=== PATIENT | female | born 1975 | race Caucasian/White ===

== ENCOUNTER 2022-01-05 14:11 | Outpatient (CLI) | payer OTHER, SELFPAY ==
--- NOTE | 2022-01-05 | ECG_ITS ---
Measurements Intervals [place] Rate: 88 P: 15 W[place]: 132 QRS: 21 QRSD: 84 T: 28 QT: 338 QTc: 411 Interpretive Statements SINUS RHYTHM NORMAL ECG NO PREVIOUS ECG AVAILABLE FOR COMPARISON Electronically Signed On 01-05-2022 15:47:11 CDT by Conrad Wray M.D.
== END 2022-01-05 14:12 | disposition home or self-care (01) ==
LOC: ANHCARD 14:15
PROVIDERS: Visit Provider Obstetrics & Gynecology
DX: R55 Syncope and collapse (principal)
CPT/HCPCS: 93005

== ENCOUNTER 2022-02-02 10:53 | Outpatient (RCR) | payer OTHER, SELFPAY ==
[2022-02-02] MEDS: RHO(D) IMMUNE GLOBULIN 300 MCG/2 ML SYRINGE IM (15:00)
== END 2022-05-03 23:59 | disposition home or self-care (01) ==
LOC: ANHLAB 10:53
PROVIDERS: Visit Provider Obstetrics & Gynecology
DX: Z29.13 Encounter for prophylactic Rho(D) immune globulin (principal); O36.0190 Maternal care for anti-D [Rh] antibodies, unspecified trimester, not applicable or unspecified; Z3A.00 Weeks of gestation of pregnancy not specified
CPT/HCPCS: 36415; 85461; 90384; 96372; J2790

== ENCOUNTER 2022-04-22 06:26 | Inpatient (IN) | payer OTHER, SELFPAY ==
[2022-04-22] VITALS (170 sets, daily range): BP systolic 68–172; BP diastolic 35–96; PULSE 86–191; TEMP 36.3–38.3; O2SAT 94–100; BMI 32.1
--- NOTE | 2022-04-22 06:41 | P.HP_ITS ---
H&P: HPI History of Present Illness Date/Time: 04/22/22 06:41 Chief Complaint: induction of labor at term Narrative: this is a 47-year-old 6 para 5 whose last menstrual period is unknown, EDC is 04/29/2022, confirmed by 18 week ultrasound presents at term for induction of labor. The has been uncomplicated short of hers markedly advanced age. [facility] Family History Family History Mother Hypertension Kidney failure Colitis Social History Social History Substance use: never Spiritual care concerns: No Meds Home Medications and Allergies Allergies Allergy/AdvReac Type Severity Reaction Status Date / Time No Known Allergies Allergy Unknown Verified 04/07/22 15:55 Exam : Speculum Exam - Cervix: normal appearance of the cervix, Cervical os closed ( Cervix 6cm. Spontaneous rupture membranes was clear. ) and Other cervical findings present ( FHTs okay now. Earlier deep deceleration) Assessment and Plan Assessment and plan (1) Term : Code(s): Z34.90 - Encounter for supervision of normal , unspecified, unspecified trimester Status: Acute (2) Advanced maternal age (AMA) in : Status: Acute Plan medical induction of labor. Spontaneous vaginal delivery is expected.
--- NOTE | 2022-04-22 06:44 | LDADM ---
This patient, Harmony Boggs, was admitted to Labor/Delivery/Recovery 106 on 04/22/22 at 06:26. Plans for labor, pain management and were discussed with patient. Patient/family oriented to hospital policies and general routines including ID bracelet, bed and alarms, visiting hours, pain management, procedures, bathroom and other care routines, personal items, smoking policy, room service/diet and guest tray routines, security routines, and visiting hours. Patient/Family are encouraged to report perceived risks to care and to ask questions if they do not understand what they are told or what they should do. See OBIX for further documentation.
[2022-04-22 07:22] LABS: Basophils Absolute Auto 0.1 K/mm3 (0.0-0.1); Basophils Percent Auto 0.4 % (0.2-1.2); Eosinophils Absolute Auto 0.2 K/mm3 (0-0.3); Eosinophils Percent Auto 1.5 % (0-4.4); Hematocrit 36.3 % (37.0-47.0); Hemoglobin 11.9 g/dL (12.0-15.0); Immature Granulocyte Absolute 0.06 K/mm3 (0.00-0.031); Immature Granulocyte Percent A 0.4 % (0-0.5); Lymphocytes Absolute Auto 2.32 K/mm3 (0.9-3.2); Lymphocytes Percent Auto 17.3 % (18.3-44.2); Mean Corpuscular HGB Conc 32.8 g/dl (32-36); Mean Corpuscular Hemoglobin 29.2 pg (26-34); Mean Corpuscular Volume 89.2 fl (80-100); Mean Platelet Volume 9.2 fl (7.4-10.4); Monocytes Absolute Auto 0.9 K/mm3 (0.1-0.6); Monocytes Percent Auto 6.5 % (2.6-8.5); Neutrophils Absolute Auto 9.9 K/mm3 (1.3-6.7); Neutrophils Percent Auto 73.9 % (45.5-73.1); Platelet Count Result 315 k/mm3 (150-375); Red Blood Count 4.07 M/mm3 (4.2-5.4); Red Cell Distribution Width 13.2 % (11.5-14.5); White Blood Count 13.4 K/mm3 (4.5-10.0)
[2022-04-22] MEDS: LACTATED RINGERS 1,000 ML 125 ML IV CONT ×2 (07:42→19:10)
[2022-04-22] MEDS: OXYTOCIN 30 UNITS/NS 500 ML 30 UNITS/500 ML BAG IV CONT (07:42)
--- NOTE | 2022-04-22 10:05 | WPDANESEPP ---
Anes - Eval Pre Procedure Procedure: Labor pain management Date/Time: 04/22/22 10:05 Preop Diagnosis: Pain during labor Pre Op Diagnosis: iol Patient Data Age: 47 Gender: F Height: 1.63 m Weight: 85 kg Last Vital Signs Temp 36.6 C 04/22/22 08:00 Pulse 92 04/22/22 10:01 BP 115/66 04/22/22 10:01 O2 Del Method Room Air 04/22/22 06:43 Allergies Allergy/AdvReac Type Severity Reaction Status Date / Time No Known Allergies Allergy Unknown Verified 04/07/22 15:55 Home Medications Medication Instructions Recorded Confirmed Type famotidine 20 mg tablet (Pepcid AC) See Rx Instructions .Route .COMPLEX 04/22/22 04/22/22 History Laboratory Tests 04/22/22 04/22/22 04/22/22 07:15 07:15 07:15 WBC 13.4 K/mm3 H K/mm3 (4.5-10.0) RBC 4.07 M/mm3 L M/mm3 (4.2-5.4) Hgb 11.9 g/dL L g/dL (12.0-15.0) Hct 36.3 % L % (37.0-47.0) MCV 89.2 fl fl (80-100) MCH 29.2 pg pg (26-34) MCHC 32.8 g/dl g/dl (32-36) RDW 13.2 % % (11.5-14.5) Plt Count 315 k/mm3 k/mm3 (150-375) MPV 9.2 fl fl (7.4-10.4) Immature Gran % (Auto) 0.4 % % (0-0.5) Neut % (Auto) 73.9 % H % (45.5-73.1) Lymph % (Auto) 17.3 % L % (18.3-44.2) [place] % (Auto) 6.5 % % (2.6-8.5) Eos % (Auto) 1.5 % % (0-4.4) Baso % (Auto) 0.4 % % (0.2-1.2) Lymph # (Auto) 2.32 K/mm3 K/mm3 (0.9-3.2) [place] # (Auto) 0.9 K/mm3 H K/mm3 (0.1-0.6) Eos # (Auto) 0.2 K/mm3 K/mm3 (0-0.3) Baso # (Auto) 0.1 K/mm3 K/mm3 (0.0-0.1) Abs Immat Gran (auto) 0.06 K/mm3 H K/mm3 (0.00-0.031) Absolute Neuts (auto) 9.9 K/mm3 H K/mm3 (1.3-6.7) Absolute Nucleated RBC 0.0 K/mm3 K/mm3 (0.0-0.012) Nucleated RBC % 0.0 % % (0.0-0.2) RPR Pending Blood Type AB Negative Antibody Screen Positive Antibody Identification Pending Antigen Identification Pending TAWANNA, IgG Interpret Not Performed TAWANNA, Poly Interpret Negative TAWANNA, Complement Interp Pending Patient hx anesthesia problems: none Family hx anesthesia problems: none Results Review: All pre-operative results and documents have been reviewed as part of the pre-operative evaluation. [facility] Family History Family History Mother Hypertension Kidney failure Colitis Social History Social History Smoking status: Never smoker Substance use: never Spiritual care concerns: No Exam Day of Procedure 04/22/22 10:05 Patient weight: overweight Neurological: alert and oriented
[2022-04-22 10:22] LABS: Rapid Plasma Reagin Non-Reactive (NonReactive)
--- NOTE | 2022-04-22 16:34 | PM.OBPNLAB ---
Pain Control Date/time seen: 04/22/22 16:34 Pain control: tolerating well Pelvic Exam Dilation (cm): 7 Effacement (%): 80 station: -1 Amniotic membrane status: Leaking Contractions Monitor mode: Internal Contraction frequency: 2
[2022-04-22] MEDS: fentaNYL CITRATE INJ (*CRX) 100 MCG/2 ML VIAL 50 MCG IV PUSH (17:08)
--- NOTE | 2022-04-22 19:00 | PM.OBPNLAB ---
Pain Control Date/time seen: 04/22/22 19:00 Pain control: tolerating well and epidural Pelvic Exam Dilation (cm): 9 Effacement (%): 80 station: -1 Amniotic membrane status: Leaking Contractions Monitor mode: Internal Contraction frequency: 2
[2022-04-22] MEDS: AMPICILLIN 2 GM/NS 100 ML 2 GM/100 ML BAG IVPB (22:22)
[2022-04-23] VITALS (39 sets, daily range): BP systolic 101–180; BP diastolic 53–80; PULSE 78–123; RESP 16–18; TEMP 36.1–37.4; O2SAT 80–100
--- NOTE | 2022-04-23 00:27 | PM.OBPRVD ---
OB - Delivery Note Procedure Procedure: Patient pushed for a spontaneous vaginal delivery. The fetus was delivered atraumatically and placed on the maternal abdomen. The cord was clamped and cut after 1 minute of life. The cord was double clamped and cut and a segment of cord was collected for cord gases. Cord blood was collected for blood type and Coomb's testing. The placenta delivered spontaneously and was noted to be intact. The perineum was inspected and there were no lacerations noted. The uterus was firm and good hemostasis was noted. The patient and fetus were stable in the delivery room. Delivery monitor: External FHT Route of delivery: Episiotomy description: None Laceration Description: None Specimen: No Quantitative Blood Loss (ml): 150 Anesthesia type: Epidural Disposition: Floor () Complications: No immediate complications Baby Date of : 04/23/22 Time of : 00:19 Weeks of gestation at delivery: 40 gender: Female presentation: vertex position: Right Occiput Anterior Placenta delivery description: Spontaneous Cord Vessel Description: 3 Vessels score one minute: 8 score five minutes: 9
[2022-04-23] MEDS: OXYTOCIN 30 UNITS/NS 500 ML 30 UNITS/500 ML BAG 125 UNITS IV CONT (00:58)
[2022-04-23] MEDS: BENZOCAINE 20% AER SPR (*SP) 56 GM CAN 1 SPRAY TOPICAL (02:30)
[2022-04-23] MEDS: WITCH HAZEL 40 PADS 1 PAD TOPICAL (02:30)
--- NOTE | 2022-04-23 03:24 | ADMGEN ---
This patient, Harmony Boggs, was admitted to OB 2nd Floor Room 279-00. Patient/family oriented to hospital policies and general routines including ID bracelet, bed and alarms, visiting hours, pain management, procedures, bathroom and other care routines, personal items, smoking policy, room service/diet, and visiting hours. Information on how to activate the Rapid Response Team has been discussed. Patient/Family are encouraged to report perceived risks to care and to ask questions if they do not understand what they are told or what they should do.
[2022-04-23] MEDS: LANOLIN (LANSINOH) 7.5 GM CREAM 1 APPLIC TOPICAL (04:00)
[2022-04-23] MEDS: ACETAMINOPHEN 325 MG TABLET 650 MG PO (04:00)
[2022-04-23] MEDS: IBUPROFEN 600 MG TABLET (04:01)
--- NOTE | 2022-04-23 07:04 | PM.OBPNVD ---
OB - PN: Subj Subjective Date/time seen: 04/23/22 07:04 Patient comments: no complaints and pain well controlled baby status: doing well OB - PN: Obj Data Labs CBC & Chem 7: 04/22/22 07:15 Labs: Laboratory Results - last 24 hr 04/22/22 04/22/22 04/22/22 07:15 07:15 07:15 WBC 13.4 H RBC 4.07 L Hgb 11.9 L Hct 36.3 L MCV 89.2 MCH 29.2 MCHC 32.8 RDW 13.2 Plt Count 315 MPV 9.2 Immature Gran % (Auto) 0.4 Neut % (Auto) 73.9 H Lymph % (Auto) 17.3 L [place] % (Auto) 6.5 Eos % (Auto) 1.5 Baso % (Auto) 0.4 Lymph # (Auto) 2.32 [place] # (Auto) 0.9 H Eos # (Auto) 0.2 Baso # (Auto) 0.1 Abs Immat Gran (auto) 0.06 H Absolute Neuts (auto) 9.9 H Absolute Nucleated RBC 0.0 Nucleated RBC % 0.0 RPR Non-reactive Blood Type AB Negative Antibody Screen Positive Antibody Identification Inconclusive Antigen Identification Cancelled TAWANNA, IgG Interpret Not Performed TAWANNA, Poly Interpret Negative TAWANNA, Complement Interp Not Performed OB - PN A/P Assessment and Plan (1) Advanced maternal age (AMA) in : Status: Acute (2) Term : Code(s): Z34.90 - Encounter for supervision of normal , unspecified, unspecified trimester Status: Acute Plan day: 1 Plan: routine care Time Spent With Patient Time: Total time spent is greater than 50% in coordination of care (as documented) at patient's floor/unit and/or counseling patient: Time with patient: less than 15 minutes
[2022-04-23] MEDS: MULTIVIT/MIN/PREN/FOL AC/IRON TABLET 1 TAB PO (07:45)
--- NOTE | 2022-04-23 10:27 | PC.NURSE ---
0935 - Introductions were made, then consulted with patient to assess needs related to . Mother led the conversation with her?plans to feed?her and the?experience so far. Resources provided for inpatient and outpatient services using a resource guide and mom/baby guide. Mother voiced understanding of information and will call if there is a request for assistance. Reported to primary RN.
[2022-04-23] MEDS: IBUPROFEN 600 MG TABLET PO (12:19)
[2022-04-24] MEDS: ACETAMINOPHEN 325 MG TABLET 650 MG PO ×2 (00:42→09:02)
[2022-04-24] MEDS: IBUPROFEN 600 MG TABLET PO ×2 (00:43→09:02)
[2022-04-24 04:55] LABS: Hematocrit 27.7 % (37.0-47.0); Hemoglobin 8.8 g/dL (12.0-15.0)
--- NOTE | 2022-04-24 07:00 | PM.DS ---
DS: Admitting Diagnosis Discharge Date 04/24/2022 Admitting Diagnosis Term DS: Discharge Diagnosis Discharge Diagnosis (1) Advanced maternal age (AMA) in : Status: Acute (2) Term : Code(s): Z34.90 - Encounter for supervision of normal , unspecified, unspecified trimester Status: Acute DS: Summary Hospital Course Reason for hospitalization: Induction of labor at term Hospital Course: This is a 47-year-old 6 now para 6 who was admitted at term for induction of labor. She underwent spontaneous vaginal delivery and had an unremarkable course. She remained afebrile. She was up, voiding without difficulty, ambulating, generally without complaints. Routine discharge instructions were given. Time Spent with Patient Time attestation: Total time spent providing and/or coordinating discharge services: DS: Data Data Completed and Pending Labs on day of discharge: Labs from last 24 hours 04/24/22 04:09 Hgb 8.8 L D Hct 27.7 L Discharge Plan Discharge Attending physician on discharge: Christian Guthrie Discharging Clinician: Christian Guthrie Patient Disposition: Home, Self-Care Activity: may shower, no straining and pelvic rest Diet: heart healthy Wound Care Instructions: follow printed instructions Patient Instructions: Antibiotic Form Stand Alone Forms: General Discharge Information Follow-up/Referrals: Christian Guthrie MD [Physician] - Discharge Medications: Continued famotidine [Pepcid AC] 20 mg Tablet See Rx Instructions .ROUTE .COMPLEX Rx Instructions: follow Rx instructions Date of admission: 04/22/22 06:26 Primary Care Provider: PHYSICIAN,SCREW CUTTER Admitting Provider: Christian Guthrie Attending physician on admission: Christian Guthrie Condition: Stable
[2022-04-24 08:00] VITALS: PULSE 91; RESP 18; O2SAT 100
[2022-04-24 08:10] VITALS: BP 120/76; PULSE 98; RESP 18; TEMP 37.1; O2SAT 97
[2022-04-24] MEDS: DOCUSATE SODIUM 100 MG CAPSULE PO (09:01)
[2022-04-24] MEDS: MULTIVIT/MIN/PREN/FOL AC/IRON TABLET 1 TAB PO (09:01)
[2022-04-24] MEDS: POLYSACCHARIDE IRON COMPLEX 150 MG CAPSULE PO (09:01)
--- NOTE | 2022-04-24 10:12 | PC.NURSE ---
Patient was given the opportunity to view the discharge video Mother & Baby Care, The First Two Weeks and to ask questions. Patient declined viewing the video and has been given the mother/baby guide for home reference.
[2022-04-24] MEDS: MEASLES,MUMPS,RUBELLA VACCINE 0.5 ML VIAL SUB-Q (10:35)
[2022-04-25 10:33] VITALS: BP 121/64; PULSE 87; RESP 20; TEMP 37.2; O2SAT 99
== END 2022-04-24 12:05 | disposition home or self-care (01) | DRG 560 ==
LOC: ANHLDR 10:17 → ANHOB2 04-23 03:34
PROVIDERS: Student in an Organized Health Care Education/Training Program; Admitting Provider Obstetrics & Gynecology; Visit Provider Obstetrics & Gynecology
DX: O75.2 Pyrexia during labor, not elsewhere classified (principal); Z3A.39 39 weeks gestation of pregnancy; Z37.0 Single live birth
CPT/HCPCS: 36415; 85014; 85018; 85025; 86592; 86850; 86880; 86900; 86901; 86902; 90710; A9270; J0131; J0290; J2590; J2795; J3010; J7120

== ENCOUNTER 2023-08-02 14:25 | Outpatient (CLI) | payer OTHER, SELFPAY ==
--- NOTE | ~2023-08-02 | XR_ITS ---
EXAM: XR wrist LT min 3V DATE: 08/02/2023 15:20 HISTORY: LEFT WRIST PAIN, RADIAL BUMP, PAIN RADIATING TO ELBOW . COMPARISON: None available. FINDINGS: Normal mineralization. No fracture or dislocation. No lytic or blastic lesion. Mild degene rative changes. No erosion or periosteal change. Ovoid soft tissue density mass over the radial stylo id. IMPRESSION: Ovoid soft tissue mass overlying the radial styloid. This is a common location for gangli on cysts although other lesions are possible. Consider additional evaluation and correlation with ult rasound and/or MRI. Reviewed, dictated and finalized at location K. ICAL PROCESS PROJECT ENGINEER IMPRESSION: Ovoid soft tissue mass overlying the radial styloid. This is a comm on location for ganglion cysts although other lesions are possible. Consider ad ditional evaluation and correlation with ultrasound and/or MRI.
[2023-08-02 15:36] LABS: Hematocrit 42.8 % (37.0-47.0); Hemoglobin 14.1 g/dL (12.0-15.0); Mean Corpuscular HGB Conc 32.9 g/dl (32-36); Mean Corpuscular Hemoglobin 29.2 pg (26-34); Mean Corpuscular Volume 88.6 fl (80-100); Mean Platelet Volume 9.7 fl (7.4-10.4); Platelet Count Result 325 k/mm3 (150-375); Red Blood Count 4.83 M/mm3 (4.2-5.4); Red Cell Distribution Width 13.2 % (11.5-14.5); White Blood Count 10.9 K/mm3 (4.5-10.0)
[2023-08-02 16:03] LABS: Alanine Aminotransferase 16 U/L (6-35); Albumin Level 4.5 g/dL (3.5-5.1); Alkaline Phosphatase 89 U/L (38-126); Anion Gap 7 mmol/L (8-16); Aspartate Amino Transferase 20 U/L (14-36); Bilirubin,Total 0.9 mg/dL (0.2-1.3); Blood Urea Nitrogen 16 mg/dL (7-17); Calcium 9.2 mg/dL (8.4-10.2); Carbon Dioxide 27 mmol/L (22-30); Chloride 107 mmol/L (98-107); Cholesterol 234 mg/dL (0-200); Estimated Glomerular Filt Rate > 60; Glucose 107 mg/dL (65-110); HDL Direct 52 mg/dL; Potassium 3.6 mmol/L (3.4-5.0); Sodium 141 mmol/L (137-145); Triglycerides 249 mg/dL (<150)
[2023-08-02 16:06] LABS: Rheumatoid Factor < 12.0 IU/ML (<12)
[2023-08-02 16:14] LABS: LDL Cholesterol Direct 116 mg/dL
[2023-08-02 16:18] LABS: Erythrocyte Sedimentation Rate 11 mm/hr (0-20)
[2023-08-02 18:19] LABS: Creatinine Urine 177.8 mg/dL; MALB Creatinine Ratio 5.1 mg/g (0-30)
[2023-08-02 19:09] LABS: Free T4 Free Thyroxine 1.17 ng/mL (0.78-2.19); Vitamin D 25 Hydroxy 23.4 ng/mL
[2023-08-04 21:20] LABS: H pylori, Urea Breath DETECTED (NOT DETECTED)
== END 2023-08-02 14:26 | disposition home or self-care (01) ==
LOC: ANHLAB 14:28
PROVIDERS: Visit Provider Emergency Medicine
DX: R51.9 Headache, unspecified (principal); R20.2 Paresthesia of skin; R19.7 Diarrhea, unspecified
CPT/HCPCS: 36415; 73110; 80053; 80061; 82043; 82306; 83013; 83036; 84439; 85027; 85652; 86038; 86430

== ENCOUNTER 2023-09-06 13:09 | Outpatient (CLI) | payer OTHER, SELFPAY ==
[2023-09-06 14:00] LABS: Hematocrit 44.5 % (37.0-47.0); Hemoglobin 14.4 g/dL (12.0-15.0); Mean Corpuscular HGB Conc 32.4 g/dl (32-36); Mean Corpuscular Hemoglobin 29.5 pg (26-34); Mean Corpuscular Volume 91.2 fl (80-100); Mean Platelet Volume 9.4 fl (7.4-10.4); Platelet Count Result 326 k/mm3 (150-375); Red Blood Count 4.88 M/mm3 (4.2-5.4); Red Cell Distribution Width 13.3 % (11.5-14.5); White Blood Count 11.2 K/mm3 (4.5-10.0)
== END 2023-09-06 13:10 | disposition home or self-care (01) ==
LOC: ANHLAB 13:11
PROVIDERS: Visit Provider Emergency Medicine
DX: D72.829 Elevated white blood cell count, unspecified (principal)
CPT/HCPCS: 36415; 85027

== ENCOUNTER 2024-08-27 09:39 | Emergency (ER) | payer OTHER, SELFPAY ==
[2024-08-27 09:48] VITALS: BP 133/84; PULSE 78; RESP 16; TEMP 37.2; O2SAT 99
--- NOTE | 2024-08-27 09:48 | ED_ITS ---
HPI - Eye Problem General Chief complaint: Eye Problems Stated complaint: right eye painful Time Seen by Provider: 08/27/24 09:48 Source: patient Mode of arrival: ambulatory Limitations: no limitations History of Present Illness HPI Narrative: 49-year-old female presents with complaint of pain, light sensitivity, clear drainage from right eye since last night. Patient is 1-year-old child scratched patient's eye last evening. Patient does not were contacts. All systems reviewed and negative except as noted above. Related Data Allergies Allergy/AdvReac Type Severity Reaction Status Date / Time No Known Allergies Allergy Unknown Verified 08/27/24 09:46 Review of Systems Review of Systems: CONSTITUTIONAL: Denies fever, chills, or sweats. EYES: Denies visual changes . Reports redness, clear drainage, pain, light sensitivity to right eye ENT: Denies rhinorrhea, congestion, sore throat, or otalgia. CARDIOVASCULAR: Denies chest pain, palpitations, or edema. RESPIRATORY: Denies cough or dyspnea. GASTROINTESTINAL: Denies abdominal pain, nausea, vomiting, or diarrhea. GENITOURINARY: Denies dysuria or hematuria. SKIN: Denies rash or itching. MUSCULOSKELETAL: Denies back pain, joint pain, or myalgia. NEUROLOGIC: Denies headache, numbness, or weakness. PSYCHIATRIC: Denies anxiety or depression. All other systems reviewed are negative, except as documented in HPI. PMFSH Family History Family History Mother Hypertension Kidney failure Colitis Social History Social History Smoking status: Never smoker Substance use: never Spiritual care concerns: No Comments At time of signature, agree with nursing past medical, surgical, social and family history. There is no relevant family history pertinent to the presenting complaint. Exam Narrative: GENERAL: This is a well-nourished, well-developed patient, in no apparent distress. HEAD: normocephalic, atraumatic. EYES: PERRL. erythema to sclera and conjunctiva right eye. Clear drainage noted. Topical anesthetic was instilled with good anesthesia using 1gtt of opth anesthetic agent (tetracaine). Fluorescein stain of the R eye was performed. corneal abrasion noted (see eye image) NO FB, ulcer or dendritic lesions. Upper lid was everted and no FB or lesions were noted. Normal saline irrigation eye solution was performed and the patient tolerated the procedure well, no adverse reaction or complications. EARS: External ears normal NOSE: External nose normal NECK: Neck supple, non-tender without lymphadenopathy, masses or thyromegaly. CARDIOVASCULAR: Regular rate and rhythm without murmurs, gallops, or rubs. RESPIRATORY: Clear to auscultation. Breath sounds equal bilaterally. No wheezes, rales, or rhonchi. SKIN: warm, Dry, intact with no suspicious lesions or rash, good texture and turgor. NEURO: awake, alert, and oriented to person, place and time. There were no obvious focal neurologic abnormalities. EXTREMITIES: No joint tenderness, effusion, or edema noted. Eyes: Eyes/upper lids images: 1. corneal abrasion 2. corneal abrasion Course Course Level of Care: Express Care Visit Vital Signs Vital signs: Vital Signs Temperature 37.2 C 08/27/24 09:48 Pulse Rate 78 08/27/24 09:48 Respiratory Rate 16 08/27/24 09:48 Blood Pressure 133/84 08/27/24 09:48 Pulse Oximetry 99 08/27/24 09:48 Oxygen Delivery Room Air 08/27/24 09:48 Temperature 37.2 C 08/27/24 09:48 Pulse Rate 78 08/27/24 09:48 Respiratory Rate 16 08/27/24 09:48 Blood Pressure 133/84 08/27/24 09:48 Pulse Oximetry 99 08/27/24 09:48 Oxygen Delivery Room Air 08/27/24 09:48 Reviewed MDM - Eye Problem MDM Narrative Medical decision making narrative: corneal abrasion noted to right eye. Patient instructed to follow-up with her market research specialist within the next 24 hours for further evaluation. Patient is aware of diagnosis, understands and agrees to treatment plan. Anticipatory guidance given. Patient agrees to follow-up as directed and is aware of reasons to seek care at the emergency department. Portions of this record may have been created with voice recognition software Discharge Plan Discharge Clinical Impression: Abrasion of cornea, right Patient Disposition: Home, Self-Care Condition: Stable Instructions: Antibiotic Form, Corneal Abrasion (ED) Additional Instructions: Place antibiotic eyedrops as prescribed. Follow-up with your market research specialist in 24-48 hours for further evaluation. Take ibuprofen every 6-8 hours as needed for pain. For any worsening of symptoms go to the ER. Prescriptions: New ofloxacin 0.3 % drops See Rx Instructions .ROUTE .COMPLEX Qty: 10 0RF Rx Instructions: 1-2 drops into affected eye q30 minutes while awake and every 4-6 hours during sleep hours for 2 days, then 1-2 drops every hours while awake for 4-6 days, then 1-2 drops 4 times daily until symptoms resolve Follow-up/Referrals: Sergio Bush MD [Primary Care Provider] - Time of Disposition: 09:58
[2024-08-27] MEDS: DACRIOSE EYE IRRIGATION 118 ML BOTTLE RIGHT EYE (09:50)
[2024-08-27] MEDS: TETRACAINE HCL 0.5% OPHTH SOLN 4 ML BTL RIGHT EYE (09:50)
[2024-08-27] MEDS: FLUORESCEIN SOD 1 MG/STRIP RIGHT EYE (09:50)
== END 2024-08-27 10:08 | disposition home or self-care (01) ==
PROVIDERS: Emergency Provider Nurse Practitioner Family; PCP Emergency Medicine
DX: S05.01XA Injury of conjunctiva and corneal abrasion without foreign body, right eye, initial encounter (principal); W50.0XXA Accidental hit or strike by another person, initial encounter
CPT/HCPCS: 99213; A9270; G0463